=== PATIENT | male | born 1970 | race African-American/Black ===

== ENCOUNTER 2021-09-16 09:07 | Emergency (ER) | payer OTHER ==
[~2021-09-16] VITALS: Ht 175.3 cm; Wt 95.3 kg
[2021-09-16] MEDS ORDERED: cloNIDine HCL 0.1 MG TAB PO ONE (09:30)
[2021-09-16] MEDS ORDERED: HYDROcodone-ACET 10/325MG TAB PO ONE (11:45)
[2021-09-16 12:02] VITALS: BP 133/90
== END 2021-09-16 13:20 | disposition home or self-care (01) ==
LOC: ER 09:07 → EDBD 09:07 → ER 13:20
DX: S09.90XA Unspecified injury of head, initial encounter (principal); I10 Essential (primary) hypertension; M79.10 Myalgia, unspecified site; V43.52XA Car driver injured in collision with other type car in traffic accident, initial encounter; Y93.89 Activity, other specified; Y92.89 Other specified places as the place of occurrence of the external cause; Y99.8 Other external cause status
CPT/HCPCS: 70450; 72131